=== PATIENT | female | born 1940 | race Caucasian/White ===

== ENCOUNTER 2022-10-05 15:06 | Inpatient (IN) | payer MEDICARE ==
[~2022-10-05 15:06] MED LIST: Iopamidol 300 61% 100 ML VIAL FS ONE
[2022-10-05 16:11] LABS: #Basophils 0.1 10x3/uL (0.0-0.2); #Monocytes 1.4 10x3/uL (0.0-1.1); #Neutrophils 9.9 10x3/uL (1.5-8.4); %Basophils 0.6 % (0.0-2.0); %Eosinophils 0.2 % (0.0-6.0); %Lymphocytes 5.5 % (18.0-47.0); %Monocytes 11.4 % (0.0-10.0); %Neutrophils 81.4 % (40.0-75.0); Hemoglobin 15.4 g/dL (12.0-15.5); Mean Corpuscular HGB CONC 36.8 g/dL (32.0-36.0); Mean Corpuscular Hemoglobin 31.4 pg (27.0-33.0); Mean Corpuscular Volume 85.3 fl (81.6-98.3); Mean Platelet Volume 10.1 fl (7.4-10.4); Platelet Count 333 10x3/uL (150-450); RBC Distribution Width 11.9 % (11.5-14.5); White Blood Cell (WBC) Count 12.2 10x3/uL (3.5-10.5)
[2022-10-05 16:12] LABS: ALT (SGPT) 86 U/L (8-55); AST (SGOT) 77 U/L (5-34); Albumin 3.2 g/dL (3.4-4.8); Alkaline Phosphatase 89 U/L (40-110); Anion Gap 19 mmol/L (10-20); BUN (Urea Nitrogen) 25 mg/dL (9.8-20.1); Bilirubin, Total 1.6 mg/dL (0.2-1.2); Calc. Creatinine Clearance 0 mL/min (70-130); Calcium 8.5 mg/dL (7.8-10.44); Carbon Dioxide 21 mmol/L (23-31); Chloride 97 mmol/L (98-107); Estimated GFR 53; Globulin 2.5 g/dL (2.4-3.5); Glucose 83 mg/dL (83-110); Lipase 20 U/L (8-78); Potassium 3.2 mmol/L (3.5-5.1); Protein, Total 5.7 g/dL (5.8-8.1); Sodium 134 mmol/L (136-145)
[2022-10-05] MEDS ORDERED: Ondansetron PF 4 MG/2 ML Vial ONE (16:21)
[2022-10-05 16:22] LABS: Bilirubin Neg (Negative); Blood, Urine 25 (Negative); Clarity Cloudy (Clear); Glucose, Urine (Dipstick) Normal (Negative); Ketone, Urine 50 mg/dL (Negative); Leukocyte 500 (Negative); Nitrite Positive (Negative); Protein, Urine (Dipstick) 100 mg/dl (Neg-Trace)
[2022-10-05] MEDS ORDERED: Fentanyl 100 MCG/2 ML VIAL ONE (16:22)
[2022-10-05 16:43] LABS: Bacteria/HPF 4+ HPF (None Seen); RBC/HPF 0-3 HPF (0-3); WBC/HPF Greater than 50 HPF (0-3)
[2022-10-05] MEDS ORDERED: cefTRIAXone\\ROCEPHIN 1 GM VIAL ONE ×2 (16:58→21:09)
[2022-10-05 17:02] LABS: SARS-CoV-2 NAA Rapid Test Not Detected (NotDetected)
[2022-10-05] MEDS ORDERED: Acetaminophen 325 MG TAB PO PRN (20:43)
[2022-10-05] MEDS ORDERED: Senokot S 8.6-50 MG TAB PO PRN (20:43)
[2022-10-05] MEDS ORDERED: cefTRIAXone\\ROCEPHIN 1 GM in Sodium Chloride 0.9% 100 ML IVPB SCH (21:00)
[2022-10-05] MEDS ORDERED: Potassium Chloride 20 MEQ TAB ONE (21:09)
[2022-10-05] MEDS: Potassium Chloride 20 MEQ TAB PO SCH (21:29)
[2022-10-05] MEDS: Sodium Chloride 0.9% 1,000 ML IV SCH (21:32)
[2022-10-06] MEDS ORDERED: Ketorolac Tromethamine 30 MG/ML VIAL ONE (00:56)
[2022-10-06] MEDS ORDERED: Ketorolac Tromethamine 30 MG/ML VIAL IVP SCH (01:00)
[2022-10-06] MEDS: Potassium Chloride 20 MEQ TAB PO SCH (02:13)
[2022-10-06 02:29] VITALS: BMI 29.0
[2022-10-06 05:35] LABS: #Basophils 0.1 10x3/uL (0.0-0.2); #Eosinphils 0.1 10x3/uL (0.0-0.5); #Monocytes 1.1 10x3/uL (0.0-1.1); #Neutrophils 7.2 10x3/uL (1.5-8.4); %Basophils 0.8 % (0.0-2.0); %Eosinophils 0.5 % (0.0-6.0); %Lymphocytes 11.9 % (18.0-47.0); %Neutrophils 74.9 % (40.0-75.0); Hemoglobin 13.4 g/dL (12.0-15.5); Mean Corpuscular HGB CONC 36.4 g/dL (32.0-36.0); Mean Corpuscular Hemoglobin 31.3 pg (27.0-33.0); Mean Platelet Volume 9.6 fl (7.4-10.4); Platelet Count 331 10x3/uL (150-450); RBC Distribution Width 11.9 % (11.5-14.5); Red Blood Cell (RBC) Count 4.28 10x6/uL (3.90-5.03); White Blood Cell (WBC) Count 9.6 10x3/uL (3.5-10.5)
[2022-10-06 05:38] LABS: Anion Gap 14 mmol/L (10-20); BUN (Urea Nitrogen) 21 mg/dL (9.8-20.1); Calc. Creatinine Clearance 71 mL/min (70-130); Calcium 8.1 mg/dL (7.8-10.44); Carbon Dioxide 20 mmol/L (23-31); Chloride 104 mmol/L (98-107); Estimated GFR 76; Glucose 80 mg/dL (83-110); Potassium 3.1 mmol/L (3.5-5.1); Sodium 135 mmol/L (136-145)
[2022-10-06] MEDS: Sodium Chloride 0.9% 1,000 ML IV SCH ×2 (05:54→11:20)
[2022-10-06] MEDS ORDERED: Electrolyte Replacement Protocol 1 EACH FS PRN (07:55)
[2022-10-06] MEDS ORDERED: Magnesium 2 GM/50 ML(in water) 2 GM in Premix Bag 1 BAG IVPB SCH (08:00)
[2022-10-06] MEDS ORDERED: Potassium Chloride 20 MEQ TAB PO SCH (08:00)
[2022-10-06] MEDS: Aspirin 81 mg Enteric Coated Tablet PO SCH (08:18)
[2022-10-06] MEDS ORDERED: cefTRIAXone\\ROCEPHIN 2 GM in Sodium Chloride 0.9% 100 ML IVPB SCH (17:00)
[2022-10-06] MEDS ORDERED: METOPROLOL SUCCINATE 25 MG PO SCH (21:00)
[2022-10-06] MEDS ORDERED: Simvastatin 40 MG TAB PO SCH (21:00)
[2022-10-06] MEDS: Atorvastatin Calcium 40 MG TAB PO SCH (21:46)
[2022-10-07 06:07] LABS: #Basophils 0.1 10x3/uL (0.0-0.2); #Eosinphils 0.1 10x3/uL (0.0-0.5); #Monocytes 0.9 10x3/uL (0.0-1.1); #Neutrophils 6.2 10x3/uL (1.5-8.4); %Basophils 1.3 % (0.0-2.0); %Eosinophils 1.3 % (0.0-6.0); %Lymphocytes 13.6 % (18.0-47.0); %Monocytes 10.3 % (0.0-10.0); Hemoglobin 13.9 g/dL (12.0-15.5); Mean Corpuscular HGB CONC 35.5 g/dL (32.0-36.0); Mean Corpuscular Hemoglobin 31.2 pg (27.0-33.0); Mean Corpuscular Volume 87.9 fl (81.6-98.3); Mean Platelet Volume 10.3 fl (7.4-10.4); Platelet Count 293 10x3/uL (150-450); RBC Distribution Width 11.9 % (11.5-14.5); Red Blood Cell (RBC) Count 4.46 10x6/uL (3.90-5.03); White Blood Cell (WBC) Count 8.5 10x3/uL (3.5-10.5)
[2022-10-07 06:30] LABS: Anion Gap 16 mmol/L (10-20); BUN (Urea Nitrogen) 11 mg/dL (9.8-20.1); Calc. Creatinine Clearance 80 mL/min (70-130); Calcium 8.4 mg/dL (7.8-10.44); Carbon Dioxide 20 mmol/L (23-31); Chloride 103 mmol/L (98-107); Estimated GFR 86; Glucose 84 mg/dL (83-110); Phosphorus 2.2 mg/dL (2.3-4.7); Potassium 3.7 mmol/L (3.5-5.1); Sodium 135 mmol/L (136-145)
[2022-10-07] MEDS ORDERED: Senokot S 8.6-50 MG TAB ONE (08:44)
[2022-10-07] MEDS ORDERED: Magnesium 2 GM/50 ML BAG (IN WATER) ONE (08:58)
[2022-10-07] MEDS ORDERED: Magnesium 2 GM/50 ML(in water) 2 GM in Premix Bag 1 BAG IVPB SCH (09:00)
[2022-10-07] MEDS: Aspirin 81 mg Enteric Coated Tablet PO SCH (09:00)
[2022-10-07] MEDS ORDERED: Meropenem 1 GM in Sodium Chloride 0.9% 100 ML IVPB SCH (10:00)
[2022-10-07] MEDS ORDERED: Meropenem 500 MG in Sodium Chloride 0.9% 100 ML IVPB SCH (14:00)
[2022-10-07] MEDS ORDERED: K-Phos Neutral 250 MG TAB PO SCH (17:00)
[2022-10-07] MEDS: Meropenem 1 GM in Sodium Chloride 0.9% 100 ML IVPB SCH (18:24)
[2022-10-07] MEDS: Atorvastatin Calcium 40 MG TAB PO SCH (21:30)
[2022-10-08] MEDS: Meropenem 1 GM in Sodium Chloride 0.9% 100 ML IVPB SCH ×3 (03:02→18:07)
[2022-10-08 04:32] LABS: Anion Gap 13 mmol/L (10-20); BUN (Urea Nitrogen) 8 mg/dL (9.8-20.1); Calc. Creatinine Clearance 81 mL/min (70-130); Carbon Dioxide 26 mmol/L (23-31); Chloride 102 mmol/L (98-107); Potassium 3.3 mmol/L (3.5-5.1); Sodium 138 mmol/L (136-145)
[2022-10-08 04:33] LABS: Calcium 8.3 mg/dL (7.8-10.44); Estimated GFR 86; Glucose 96 mg/dL (83-110); Magnesium 2.1 mg/dL (1.6-2.6)
[2022-10-08 04:54] LABS: #Basophils 0.1 10x3/uL (0.0-0.2); #Eosinphils 0.1 10x3/uL (0.0-0.5); #Monocytes 0.8 10x3/uL (0.0-1.1); #Neutrophils 4.3 10x3/uL (1.5-8.4); %Basophils 1.5 % (0.0-2.0); %Eosinophils 1.7 % (0.0-6.0); %Lymphocytes 17.2 % (18.0-47.0); %Monocytes 11.5 % (0.0-10.0); %Neutrophils 65.4 % (40.0-75.0); Hemoglobin 13.2 g/dL (12.0-15.5); Mean Corpuscular HGB CONC 35.8 g/dL (32.0-36.0); Mean Corpuscular Hemoglobin 30.9 pg (27.0-33.0); Mean Corpuscular Volume 86.4 fl (81.6-98.3); Mean Platelet Volume 9.5 fl (7.4-10.4); Platelet Count 359 10x3/uL (150-450); RBC Distribution Width 11.9 % (11.5-14.5); Red Blood Cell (RBC) Count 4.27 10x6/uL (3.90-5.03); White Blood Cell (WBC) Count 6.6 10x3/uL (3.5-10.5)
[2022-10-08] MEDS: Potassium Chloride 20 MEQ TAB PO SCH ×2 (06:11→08:42)
[2022-10-08] MEDS ORDERED: Acetaminophen 325 MG TAB ONE (07:57)
[2022-10-08] MEDS: Aspirin 81 mg Enteric Coated Tablet PO SCH (08:43)
[2022-10-08] MEDS ORDERED: Meropenem 1 GM VIAL ONE (18:00)
[2022-10-08] MEDS: Atorvastatin Calcium 40 MG TAB PO SCH (22:04)
[2022-10-09] MEDS: Meropenem 1 GM in Sodium Chloride 0.9% 100 ML IVPB SCH ×2 (03:04→09:29)
[2022-10-09 04:34] LABS: Potassium 3.4 mmol/L (3.5-5.1)
[2022-10-09] MEDS ORDERED: Potassium Chloride 20 MEQ TAB PO SCH (06:00)
[2022-10-09] MEDS: Aspirin 81 mg Enteric Coated Tablet PO SCH (09:28)
[2022-10-09 10:46] VITALS: BP 157/74; TEMP 98
== END 2022-10-09 12:30 | disposition home health service (06) | DRG 690 ==
LOC: CSHERS 15:06 → CSHERHOLD 20:58 → CSHTELE 10-06 02:01
PROVIDERS: ADMIT Family Medicine; ATTEND Hospitalist
DX: N10 Acute pyelonephritis (principal); Z16.35 Resistance to multiple antimicrobial drugs; E87.1 Hypo-osmolality and hyponatremia; I10 Essential (primary) hypertension; E87.6 Hypokalemia; I25.10 Atherosclerotic heart disease of native coronary artery without angina pectoris; E78.5 Hyperlipidemia, unspecified; E83.39 Other disorders of phosphorus metabolism; K21.9 Gastro-esophageal reflux disease without esophagitis; B96.20 Unspecified Escherichia coli [E. coli] as the cause of diseases classified elsewhere; M19.90 Unspecified osteoarthritis, unspecified site; Z88.5 Allergy status to narcotic agent; Z79.82 Long term (current) use of aspirin; Z79.899 Other long term (current) drug therapy; Z86.73 Personal history of transient ischemic attack (TIA), and cerebral infarction without residual deficits; Z95.5 Presence of coronary angioplasty implant and graft; Z90.49 Acquired absence of other specified parts of digestive tract; Z90.89 Acquired absence of other organs; Z90.721 Acquired absence of ovaries, unilateral; Z87.891 Personal history of nicotine dependence; Z83.3 Family history of diabetes mellitus; Z82.49 Family history of ischemic heart disease and other diseases of the circulatory system
CPT/HCPCS: 36415; 51701; 74177; 80048; 80053; 81003; 81015; 83605; 83690; 83735; 84100; 84132; 84484; 85025; 87040; 87077; 87086; 87186; 93005; 96361; 96365; 96375; J0696; J1650; J1885; J2185; J2405; J3010; J3475; J3490; J7050; Q9967

== ENCOUNTER 2025-07-23 21:31 | Inpatient (IN) | payer MEDICARE ==
[2025-07-23 22:24] LABS: Glucose, Urine (Dipstick) Normal (Negative); Leukocyte 500 (Negative); Protein, Urine (Dipstick) 100 mg/dl (Neg-Trace); Specific Gravity, Urine 1.010 (1.005-1.030)
[2025-07-23 22:31] LABS: #Basophils 0.09 10x3/uL (0.0-0.2); #Eosinophils 0.03 10x3/uL (0.0-0.5); #Monocytes 0.77 10x3/uL (0.0-1.1); #Neutrophils 8.00 10x3/uL (1.5-8.4); %Basophils 0.9 % (0.0-2.0); %Eosinophils 0.3 % (0.0-6.0); %Lymphocytes 11.3 % (18.0-47.0); %Monocytes 7.6 % (0.0-10.0); %Neutrophils 79.2 % (40.0-75.0); Hematocrit 48.6 % (34.9-44.5); Hemoglobin 17.9 g/dL (12.0-15.5); Mean Corpuscular Hemoglobin 30.9 pg (27.0-33.0); Mean Corpuscular Volume 83.9 fL (81.6-98.3); Platelet Count 307 10x3/uL (150-450); Red Blood Cell (RBC) Count 5.79 10x6/uL (3.90-5.03); White Blood Cell (WBC) Count 10.10 10x3/uL (3.5-10.5)
[2025-07-23 22:36] LABS: INR-International Normal Ratio 1.0; PTT 26.7 sec (22.0-33.0); Prothrombin Time 11.2 sec (9.5-12.1)
[2025-07-23 22:41] LABS: ALT (SGPT) Less than 7 U/L (Less than 34); AST (SGOT) 18 U/L (11-34); Albumin 4.0 g/dL (3.1-4.5); Alkaline Phosphatase 63 U/L (40-110); Anion Gap 23 mmol/L (10-20); BUN (Urea Nitrogen) 13 mg/dL (9.8-20.1); Bilirubin, Total 1.4 mg/dL (0.3-1.2); CK (CPK) 49 U/L (29-168); Calc. Creatinine Clearance 0 mL/min (70-130); Calcium 10.2 mg/dL (7.8-10.44); Carbon Dioxide 20 mmol/L (23-31); Chloride 99 mmol/L (98-107); Globulin 3.1 g/dL (2.4-3.5); Glucose 108 mg/dL (83-110); Magnesium 1.8 mg/dL (1.6-2.6); Potassium 3.7 mmol/L (3.5-5.1); Sodium 138 mmol/L (136-145)
[2025-07-23 22:44] LABS: Troponin I Less than 0.010 ng/mL (< 0.028)
[2025-07-23 23:13] LABS: Bacteria/HPF 4+ HPF (None Seen); CAUTI Indications for Culture Alt mental st,lethar; RBC/HPF 0-3 HPF (0-3); Urine Culture Reflex Yes Yes; WBC/HPF Greater Than 50 HPF (0-3)
[2025-07-23] MEDS ORDERED: cefTRIAXone (ROCEPHIN) 1 GM VIAL ONE (23:25)
[2025-07-23] MEDS ORDERED: Magnesium 2 GM/50 ML BAG (IN WATER) ONE (23:48)
[2025-07-24] MEDS ORDERED: Milk Of Magnesia 30 ML UDCUP PO PRN (00:45)
[2025-07-24 01:34] VITALS: BMI 21.9
[2025-07-24] MEDS: Senokot 8.6 MG TAB PO SCH (06:08)
[2025-07-24 06:36] LABS: #Basophils 0.08 10x3/uL (0.0-0.2); #Eosinophils Less than 0.03 10x3/uL (0.0-0.5); #Monocytes 0.79 10x3/uL (0.0-1.1); #Neutrophils 5.06 10x3/uL (1.5-8.4); %Basophils 1.1 % (0.0-2.0); %Eosinophils 0.3 % (0.0-6.0); %Lymphocytes 19.2 % (18.0-47.0); %Monocytes 10.6 % (0.0-10.0); %Neutrophils 68.1 % (40.0-75.0); Hematocrit 45.4 % (34.9-44.5); Hemoglobin 16.5 g/dL (12.0-15.5); Mean Corpuscular Hemoglobin 30.7 pg (27.0-33.0); Mean Corpuscular Volume 84.4 fL (81.6-98.3); Platelet Count 268 10x3/uL (150-450); Red Blood Cell (RBC) Count 5.38 10x6/uL (3.90-5.03); White Blood Cell (WBC) Count 7.43 10x3/uL (3.5-10.5)
[2025-07-24 06:55] LABS: Anion Gap 13 mmol/L (10-20); BUN (Urea Nitrogen) 10 mg/dL (9.8-20.1); Calc. Creatinine Clearance 49 mL/min (70-130); Calcium 8.6 mg/dL (7.8-10.44); Carbon Dioxide 23 mmol/L (23-31); Chloride 104 mmol/L (98-107); Glucose 83 mg/dL (83-110); Magnesium 2.3 mg/dL (1.6-2.6); Potassium 3.2 mmol/L (3.5-5.1); Sodium 137 mmol/L (136-145)
[2025-07-24] MEDS ORDERED: Enoxaparin 40 MG (0.4 mL) SYRINGE SC SCH (09:00)
[2025-07-24] MEDS: Acetaminophen 325 MG TAB PO PRN (10:07)
[2025-07-24] MEDS: Lisinopril 10 MG TAB PO SCH (10:08)
[2025-07-24 13:55] VITALS: BMI 21.9
[2025-07-24] MEDS: Enoxaparin 40 MG (0.4 mL) SYRINGE SC SCH (20:30)
[2025-07-25] MEDS: cefTRIAXone\\ROCEPHIN 1 GM in Sodium Chloride 0.9% 100 ML IVPB SCH (00:04)
[2025-07-25] MEDS: Aspirin Chewable 81 MG TAB PO SCH (08:49)
[2025-07-25] MEDS: Lisinopril 10 MG TAB PO SCH (08:50)
[2025-07-26 05:21] LABS: #Basophils 0.09 10x3/uL (0.0-0.2); #Eosinophils 0.18 10x3/uL (0.0-0.5); #Monocytes 0.45 10x3/uL (0.0-1.1); #Neutrophils 1.91 10x3/uL (1.5-8.4); %Basophils 2.1 % (0.0-2.0); %Eosinophils 4.2 % (0.0-6.0); %Lymphocytes 37.3 % (18.0-47.0); %Monocytes 10.6 % (0.0-10.0); %Neutrophils 44.9 % (40.0-75.0); Hematocrit 44.6 % (34.9-44.5); Hemoglobin 15.2 g/dL (12.0-15.5); Mean Corpuscular Hemoglobin 30.2 pg (27.0-33.0); Mean Corpuscular Volume 88.7 fL (81.6-98.3); Platelet Count 236 10x3/uL (150-450); Red Blood Cell (RBC) Count 5.03 10x6/uL (3.90-5.03); White Blood Cell (WBC) Count 4.26 10x3/uL (3.5-10.5)
[2025-07-26 05:37] LABS: Anion Gap 13 mmol/L (10-20); BUN (Urea Nitrogen) 9 mg/dL (9.8-20.1); Calc. Creatinine Clearance 50 mL/min (70-130); Calcium 9.0 mg/dL (7.8-10.44); Carbon Dioxide 23 mmol/L (23-31); Chloride 106 mmol/L (98-107); Glucose 71 mg/dL (83-110); Magnesium 1.9 mg/dL (1.6-2.6); Potassium 3.8 mmol/L (3.5-5.1); Sodium 138 mmol/L (136-145)
[2025-07-27] MEDS ORDERED: Lisinopril 10 MG TAB PO SCH (02:15)
[2025-07-27] MEDS: hydrALAZINE 20 MG/ML VIAL SLOW IVP SCH (02:41)
[2025-07-27] MEDS: Lisinopril 10 MG TAB PO SCH (09:27)
[2025-07-27 18:46] VITALS: BP 156/97; TEMP 98.7
== END 2025-07-27 18:30 | disposition home or self-care (01) | DRG 312 ==
LOC: CSHERS 21:31 → CSHTELE 07-24 00:45
PROVIDERS: ADMIT Family Medicine; ATTEND Internal Medicine
DX: R55 Syncope and collapse (principal); N39.0 Urinary tract infection, site not specified; E87.20 Acidosis, unspecified; Z59.19 Other inadequate housing; Z60.2 Problems related to living alone; E78.5 Hyperlipidemia, unspecified; I10 Essential (primary) hypertension; F17.210 Nicotine dependence, cigarettes, uncomplicated; S01.01XA Laceration without foreign body of scalp, initial encounter; E86.0 Dehydration; I25.10 Atherosclerotic heart disease of native coronary artery without angina pectoris; Z88.8 Allergy status to other drugs, medicaments and biological substances; Z86.73 Personal history of transient ischemic attack (TIA), and cerebral infarction without residual deficits; Z95.5 Presence of coronary angioplasty implant and graft; Z90.49 Acquired absence of other specified parts of digestive tract; Z98.890 Other specified postprocedural states; Z98.891 History of uterine scar from previous surgery; Z90.710 Acquired absence of both cervix and uterus
CPT/HCPCS: 36415; 70450; 70551; 71045; 72125; 72170; 80048; 80053; 81001; 82550; 83605; 83735; 84443; 84484; 85025; 85610; 85730; 87077; 87086; 87186; 90715; 93005; 93306; J0360; J0696; J1630; J1650; J3475; J7030; J7120